=== PATIENT | male | born 1970 | race American Indian/Alaskan Native ===

== ENCOUNTER 2020-11-23 22:51 | Emergency (ER) | payer SELFPAY ==
--- OUTSIDE RECORDS SUMMARY | 2020-11-23 22:55 | XMS REPORT | Clinical Summary ---
:1970 Author Organization [facility] Address [address] [place] [id number] Care Team Providers Name Role Phone Asked, No Pcp Primary Care Provider Unavailable Allergies No Known Active Allergies Medications Not on file Active Problems Not on file Encounters Date Type Specialty Care Team Description 09/16/2020 Emergency Emergency Medicine Jaspreet, Jeanmarie Acute sys tolic CHF DO Figueroa (congestive hea rt failure) (HCC) (Primary Dx) after 11/23/2019 Surgical History Surgery Date Site/Laterality Comments NO PAST SURGERIES Medical History Medical History Date Comments CHF (congestive heart failure) (HCC) Hypertension Adhd Social History Tobacco Use Types Packs/Day Years Used Date Never Smoker Smokeless Tobacco: Never Used Alcohol Use Drinks/Week oz/Week Comments Not Currently Sex Assigned at Date Recorded Not on file Last Filed Vital Signs Vital Sign Reading Time Taken Comments Blood Pressure 114/80 09/16/2020 3:54 PM CDT Pulse 96 09/16/2020 3:54 PM CDT Temperature 36.7 C (98.1 F) 09/16/2020 3:54 PM CDT Respiratory Rate 17 09/16/2020 3:54 PM CDT Oxygen Saturation 99% 09/16/2020 3:54 PM CDT Inhaled Oxygen Concentration - - Weight - - Height - - Body Mass Index - - Plan of Treatment Health Maintenance Due Date Last Done Comments COVID-19 VACCINE (#1) 1986 INFLUENZA VACCINE 06/23/2020 COLONOSCOPY SCREENING 2020 SHINGLES VACCINES (#1) 2020 Procedures Procedure Name Priority Date/Time Associated Comments Diagnosis CT ANGIOGRAM PE CHEST STAT 09/16/2020 2:59 Re sults for this PM CDT procedure are i n the results section. ECG ED PRELIMINARY Routine 09/16/2020 1:56 Resul ts for this INTERPRETATION PM CDT procedure are in the results section. ESTIMATED GFR STAT 09/16/2020 1:30 Results fo r this PM CDT procedure are i n the results section. B NATRIURETIC PEP, STAT 09/16/2020 1:30 Resul ts for this I-STAT PM CDT procedure are i n the results section. TROPONIN, I-STAT STAT 09/16/2020 1:30 Results for this PM CDT procedure are i n the results section. CREATINE KINASE, TOTAL STAT 09/16/2020 1:30 R esults for this (CPK) PM CDT procedure are i n the results section. COMPREHENSIVE METABOLIC STAT 09/16/2020 1:30 Results for this PANEL PM CDT procedure are i n the results section. HC COMPLETE BLD COUNT STAT 09/16/2020 1:30 Re sults for this W/AUTO DIFF PM CDT procedure are i n the results section. ECG 12-LEAD Routine 09/16/2020 1:18 Results for this PM CDT procedure are i n the results section. after 11/23/[address] Angiogram Pe Chest (09/16/2020 2:59 PM CDT) Specimen Narrative Performed At [facility] Examination: CT ANGIOGRAM PE CHEST Clinical history: "PE suspected high pretest prob" Comparison: There are no prior studies for comparison. Technique: CT angiographic images of the chest were obtained during intravenous administration of iodinated contrast. Co mputerized, reformatted images and 3-D MIP images were obtained an d archived (per CT pulmonary embolism protocol). CT scans are performed using radiation dose reduction techniques. Technical factors are evaluated and adjusted to ensu re appropriate moderation of exposure. Automated dose management te chnology is applied to adjust radiation exposure whi le achieving a diagnostic quality image. Findings: There is no CT evidence of pulmonary embolism. The m ain pulmonary artery measures 2.8 cm in luminal diamet er. Exam evaluation: Satisfactory Clot burden: Not applicable Saddle embolus: No Ventricular septal bulging: No RV:LV = normal, 0.7 Within the lungs, extensive infiltration is noted with in the mid to upper portions of both lungs, right greater than left, and likely represents pulmonary edema. A discrete pulmonary nod ules are identified. A small right pleural effu enrique is noted. The central airways are patent. The thoracic aorta and its major branches are without evidence of significant calcific atherosclerosis. There is no ev idence of thoracic aortic aneurysm or dissection. Calcific atheroscler osis of the coronary arteries is noted. Borderline enlarged mediastinal/prevascular lymph node s are noted. There is no mediastinal or axillary lymp hadenopathy. The heart is markedly enlarged. There is no evidence of a pericardial effusion. Within the imaged portions of the upper abdomen, no vi sceral abnormality is identified. Within the imaged bones, no acute abnorm alities are identified. Impression: No CT evidence of pulmonary embolism. Probable pulmonary edema with a small right pleural ef fusion; other etiologies such as atypical/viral pneumo reinaldo should be considered. Marked cardiomegaly. [id number] Procedure Note Hm Interface, Radiology Results Incoming - 09/16/2020 3:10 PM CDT Examination: CT ANGIOGRAM PE CHEST Clinical history: "PE suspected high p retest prob" Comparison: There are no prior studies for comparison. Technique: CT angiographic images of th e chest were obtained during intravenous administration of iodinated contrast. Computerized, reformatted images and 3-D MIP images were obtained and archived (per CT pulmonary embolism protocol). CT scans are performed using radiation d ose reduction techniques. Technical factors are evaluated and adjusted to ensure appropriate moderation of exposure. Automated dose management technology is applied to adjust radiation exposure while achie ving a diagnostic quality image. Findings: There is no CT evidence of pulmonary emb olism. The main pulmonary artery measures 2.8 cm in luminal diameter. Exam evaluation: Satisfactory Clot burden: Not applicable Saddle embolus: No Ventricular septal bulging: No RV:LV = normal, 0.7 Within the lungs, extensive infiltration is noted within the mid to upper portions of both lungs, right greater than left, and likely represents pulmonary edema. A discrete pulmonary nodules are identified. A small right pleural effusion is noted. The central airways are patent. The thoracic aorta and its major branche s are without evidence of significant calcific atherosclerosis. There is no evidence of thoracic aortic aneurysm or dissection. Calcific atherosclerosis of the coronary arteries is noted. Borderline enlarged mediastinal/prevascu lar lymph nodes are noted. There is no mediastinal or axillary lymphadenopathy. The heart is markedly enlarged. There i s no evidence of a pericardial effusion. Within the imaged portions of the upper abdomen, no visceral abnormality is identified. Within the imaged bones, no acute abnorm alities are identified. Impression: No CT evidence of pulmonary embolism. Probable pulmonary edema with a small ri ght pleural effusion; other etiologies such as atypical/viral pneumonia should be considered. Marked cardiomegaly. [id number] Performing Organization Address City/State/[facility] Phon e Number [facility] [address] [place] [address] ECG ED Preliminary Interpretation - Not an Order (09/16/2020 1:56 PM CDT) Narrative Performed At Jeanmarie Vogel DO 0 5:39 PM ECG ED Preliminary Interpretation - Not an Order Performed by: Jeanmarie Vogel DO Authorized by: Jeanmarie Vogel DO ECG reviewed by ED Physician in the abse nce of a technical service specialist: yes Previous ECG: Previous ECG: Unavailable Interpretation: Interpretation: abnormal Rate: ECG rate: 109 ECG rate assessment: tachycardic Rhythm: Rhythm: sinus tachycardia Ectopy: Ectopy: none QRS: QRS axis: Normal QRS intervals: Normal Conduction: Conduction: normal ST segments: ST segments: Normal T waves: T waves: normal Estimated GFR (09/16/2020 1:30 PM CDT) Estimated GFR 64 mL/min/1.73 [facility] Comment: m2 [facility] Units Interpretation TON RGENCY CARE G1 >=90 Normal or high CENTER G2 60-89 Mildly decreased G3a 45-59 Mildly to moderately decreas ed G3b 30-44 Moderately to severely decre ased G4 15-29 Severely decreased G5 <15 Kidney failure The eGFR was calculated using the Chronic Kidney Disea se Epidemiology Collaboration (CKD-EPI) equation. Interpretation is based on recommendations of the National Kidney Foundation-Kidney Disease Outcomes Kd lity Initiative (NKF-KDOQI) published in 2014. Specimen Plasma Performing Organization Address City/State/ZIP Code Phon e Number DEPARTMENT OF PATHOLOGY AND [address] [place] [address] Troponin, I-Stat (09/16/2020 1:30 PM CDT) Troponin, I-Stat 0.06 0.00 - 0.08 [facility] Comment: ng/mL [place] 0.09 - 1.49 ng/ml May indicate increa sed risk of acute EMERGENCY CARE coronary syndrome. WELLS >=1.5 ng/ml Consistent with acute myocardial infarction. The diagnostic value of a single normal or non-diagnos tic result is questionable. Serial samples at 2-6 hour i ntervals are required to rule out acute myocardial injury. Specimen Plasma Performing Organization Address City/[facility] Phon e Number DEPARTMENT OF PATHOLOGY AND [address] [place], [place] [phone] [address] B natriuretic pep, I-Stat (09/16/2020 1:30 PM CDT) Pathologist Sig nature BNP, I-Stat 647 (H) 0 - 100 pg/mL [facility] Specimen Blood Performing Organization Address City/[facility] Phon e Number DEPARTMENT OF PATHOLOGY AND [address] [place], [place] [phone] [address] CBC with platelet and differential (09/16/2020 1:30 PM CDT) Pathologist Sig nature WBC 11.96 (H) 4.50 - 11.00 k/uL [facility] RBC 4.43 4.40 - 6.00 m/uL [facility] HGB 12.4 (L) 14.0 - 18.0 g/dL [facility] HCT 38.5 (L) 41.0 - 51.0 % [facility] MCV 86.9 82.0 - 100.0 fL [facility] MCH 28.0 27.0 - 34.0 pg [facility] MCHC 32.2 31.0 - 37.0 g/dL [facility] RDW - SD 47.1 37.0 - 55.0 fL [facility] MPV 8.2 (L) 8.8 - 13.2 fL [facility] Platelet count 611 (H) 150 - 400 k/uL [facility] Neutrophils 72.7 (H) 39.0 - 69.0 % [facility] Lymphocytes 13.6 (L) 25.0 - 45.0 % [facility] Monocytes 7.2 0.0 - 10.0 % [facility] Eosinophils 5.7 (H) 0.0 - 5.0 % [facility] Basophils 0.8 0.0 - 1.0 % [facility] Specimen Plasma Performing Organization Address City/[facility] Phon e Number DEPARTMENT OF PATHOLOGY AND [address] [place] [address] Creatine kinase, total (CPK) (09/16/2020 1:30 PM CDT) Pathologist Sig madalyn Creatine kinase 175 39 - 380 U/L [facility] Specimen Plasma Performing Organization Address City/[facility] Phon e Number DEPARTMENT OF PATHOLOGY AND [address] [place] [phone] Comprehensive metabolic panel (09/16/2020 1:30 PM CDT) Sodium 139 128 - 145 mEq/L [facility] Potassium 4.5 3.6 - 5.1 mEq/L [facility] CO2 35 (H) 18 - 33 mEq/L [facility] Chloride 102 98 - 108 mEq/L [facility] Glucose 103 73 - 118 mg/dL [facility] Calcium 9.2 8.0 - 10.3 [facility] mg/dL [facility] BUN 16 7 - 22 mg/dL [facility] Creatinine 1.3 (H) 0.7 - 1.2 mg/dL [facility] Alkaline phosphatase 47 (L) 53 - 128 U/L [facility] ALT 24 10 - 47 U/L [facility] AST 19 11 - 38 U/L [facility] Total bilirubin 0.6 0.2 - 1.6 mg/dL [facility] Albumin 3.2 (L) 3.3 - 5.5 g/dL [facility] Protein 6.8 6.4 - 8.1 g/dL [facility] Anion gap 2@ANIO (L) 7 - 15 mEq/L [facility] A/G ratio 0.9 0.7 - 3.8 [facility] Specimen Plasma Performing Organization Address City/[facility] Phon e Number DEPARTMENT OF PATHOLOGY AND [address] [place] [phone] [address] [facility] ECG 12 lead (09/16/2020 1:18 PM CDT) Pathologist Sig nature Ventricular rate 108 [facility] Atrial rate 108 [facility] CO interval 144 [facility] QRSD interval 90 [facility] QT interval 340 [facility] QTC interval 455 [facility] P axis 1 72 [facility] QRS axis 1 36 [facility] T wave axis 53 [facility] EKG impression Sinus [facility] tachycardia-Possible Left atrial enlargement-Borderline ECG-No previous ECGs available-Electronicall y Signed By Jose RAE, Major ([id number]) on 09/18/2020 7:20:40 PM Specimen Narrative Performed At This result has an attachment that is no t available. 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
[2020-11-23] MEDS ORDERED: DIPHENHYDRAMINE 50 MG/ML VIAL ONE (23:10)
[2020-11-23] MEDS ORDERED: METHYLPREDNISOLONE 125 MG INJ ONE (23:10)
[2020-11-23] MEDS ORDERED: FAMOTIDINE 20 MG/2 ML VIAL IV ONE (23:11)
[2020-11-23] MEDS ORDERED: NA CHLORIDE 0.9% 500 ML ONE (23:11)
[2020-11-23 23:20] LABS: Basophils % 0.4 % (0-1.3); Hematocrit 41.3 % (39.6-49.0); Lymphocytes % 20.3 % (15.3-44.8)
[2020-11-23 23:26] LABS: Potassium 4.2 mmol/L (3.5-5.1)
--- NOTE | 2020-11-24 01:50 | EDPHYS ---
Physician Documentation [facility] Name: Jaspreet Arrington Age: 50 yrs Sex: Male : 1970 Arrival Date: 11/23/2020 Time: 22:53 Bed 3 Private MD: ED Physician Junito Colunga HPI: 11/24 00:07 This 50 yrs old Male presents to ER via Wheelchair with complaints of kb Allergic Reaction. 00:07 The patient presents with localized swelling. Onset: The symptoms/episode kb began/occurred today, at 19:00. Associated signs and symptoms: Pertinent positives: swelling, Pertinent negatives: abdominal pain, Altered mental status chest pain, dysphagia, fever, headache, hives, Light headed nausea, rash, shortness of breath, Syncope vomiting. Possible causes: The patient has no known obvious cause for the symptoms. At home the patient or guardian has treated the symptoms with Benadryl. Severity of symptoms: At their worst the symptoms were moderate in the emergency department the symptoms are unchanged. The patient has experienced a previous episode. The patient has not recently seen a physician. Pt reports he started feeling throat and neck swelling at 1900. States it got progressively worse until he decided to come to the ER. Pt able to talk, but states it is difficult. Resp even and unlabored. Pt had angioedema once while taking lisinopril years ago, but no longer takes that medication. Historical: - Allergies: 11/23 23:02 No Known Allergies; lp1 - Home Meds: 23:02 tamsulosin 0.4 mg oral cp24 1 cap once daily [Active]; furosemide 40 mg Oral tab 1 tab lp1 once daily [Active]; Entresto 24-26 mg oral tab twice a day [Active]; carvedilol 3.125 mg oral tab 1 tab 2 times per day [Active]; - PMHx: 23:02 CHF; lp1 - PSHx: 23:02 None; lp1 - Immunization history:: Adult Immunizations up to date. - Social history:: Smoking status: Patient denies any tobacco usage or history of. ROS: 11/24 00:07 Constitutional: Negative for fever, chills, and weight loss, Cardiovascular: Negative kb for chest pain, palpitations, and edema, Respiratory: Negative for shortness of breath, cough, wheezing, and pleuritic chest pain, Abdomen/GI: Negative for abdominal pain, nausea, vomiting, diarrhea, and constipation, MS/Extremity: Negative for injury and deformity, Skin: Negative for injury, rash, and discoloration, Neuro: Negative for headache, weakness, numbness, tingling, and seizure. ENT: Positive for swelling to throat. Neck: Positive for swelling. Exam: 00:06 Constitutional: This is a well developed, well nourished patient who is awake, alert, kb and in no acute distress. Head/Face: Normocephalic, atraumatic. Chest/axilla: Normal chest wall appearance and motion. Nontender with no deformity. No lesions are appreciated. Cardiovascular: Regular rate and rhythm with a normal S1 and S2. No gallops, murmurs, or rubs. Normal PMI, no JVD. No pulse deficits. Respiratory: Lungs have equal breath sounds bilaterally, clear to auscultation and percussion. No rales, rhonchi or wheezes noted. No increased work of breathing, no retractions or nasal flaring. Abdomen/GI: Soft, non-tender, with normal bowel sounds. No distension or tympany. No guarding or rebound. No evidence of tenderness throughout. Skin: Warm, dry with normal turgor. Normal color with no rashes, no lesions, and no evidence of cellulitis. MS/ Extremity: Pulses equal, no cyanosis. Neurovascular intact. Full, normal range of motion. Neuro: Awake and alert, GCS 15, oriented to person, place, time, and situation. Cranial nerves II-XII grossly intact. Motor strength 5/5 in all extremities. Sensory grossly intact. Cerebellar exam normal. Normal gait. 00:06 ENT: Posterior pharynx: swelling, that is moderate. 00:06 Neck: External neck: swelling, that is moderate, of the right sternocleidomastoid and left sternocleidomastoid. Vital Signs: 11/23 22:57 BP 119 / 82; Pulse 117; Resp 18; Temp 98.1(TE); Pulse Ox 97% on R/A; Weight 72.57 kg lp1 (R); Height 5 ft. 7 in. (170.18 cm); 23:18 BP 120 / 89; Pulse 101; Resp 18; Pulse Ox 100% on R/A; mg2 11/24 00:27 BP 125 / 79; Pulse 103; Resp 19; Pulse Ox 99% ; rr5 01:15 BP 121 / 82; Pulse 96; Resp 17; Pulse Ox 100% ; rr5 01:48 BP 127 / 87; Pulse 99; Resp 18; Pulse Ox 100% on R/A; mg2 11/23 22:57 Body Mass Index 25.06 (72.57 kg, 170.18 cm) lp1 MDM: 11/23 22:55 Patient medically screened. kb 11/24 00:06 Data reviewed: vital signs, nurses notes. Data interpreted: Pulse oximetry: on room air kb is 100 %. Interpretation: normal. 00:39 Transition of care: After a detail discussion of the patient's case, care is kb transferred to Junito Colunga MD. ED course: Pt reports he feels like the swelling is better after medications. Neck swelling has gone down. . ED course: Discussed with Dr Colunga. 01:45 ED course: Patient feeling better. Discussed lab ang CT Scan result with patient. pkl Advised to follow up with PCP in 2 to 3 days. to return if necessary. Patient understood instruction. 11/23 22:56 Order name: CBC with Diff; Complete Time: 23:48 kb 11/23 22:56 Order name: Basic Metabolic Panel; Complete Time: 23:48 kb 11/23 23:54 Order name: CT Soft Tissue Neck W/contr kb 11/23 22:56 Order name: IV Start; Complete Time: 22:59 kb Administered Medications: 11/23 22:59 Drug: NS 0.9% 500 ml Route: IV; Rate: bolus; Site: left antecubital; mg2 11/24 00:54 Follow up: Response: No adverse reaction; IV Status: Completed infusion; IV Intake: mg2 500ml 11/23 23:00 Drug: SOLU-Medrol 125 mg Route: IVP; Site: left antecubital; mg2 11/24 00:55 Follow up: Response: No adverse reaction; Marked relief of symptoms mg2 11/23 23:00 Drug: Pepcid 20 mg Route: IVP; Site: left antecubital; mg2 11/24 00:55 Follow up: Response: No adverse reaction; Marked relief of symptoms mg2 11/23 23:00 Drug: Benadryl 25 mg Route: IVP; Site: left antecubital; mg2 11/24 00:55 Follow up: Response: No adverse reaction; Marked relief of symptoms mg2 Disposition: 04:06 Co-signature as Attending Physician, Junito Colunga MD. pkl Disposition: 11/24/20 01:49 Discharged to Home. Impression: Retropharyngeall edema. - Condition is Stable. - Prescriptions for Prednisone 20 mg Oral Tablet - take 2 tablet by ORAL route once daily for 5 days; 10 tablet. - Medication Reconciliation Form, Thank You Letter, Antibiotic Education, Prescription Opioid Use form. - Follow up: Private Physician; When: 2 - 3 days; Reason: Re-evaluation by your physician. - Problem is new. - Symptoms have improved. Signatures: Dispatcher [employer] EDMS Rachel Muñiz, GAUGE CHECKER-C GAUGE CHECKER-Junito Andino MD MD pkl Jaycee Velazquez, RN RN lp1 Goran Sims, RN RN mg2 Rich Crowley RN RN rr5 Corrections: (The following items were deleted from the chart) 01:51 01:49 11/24/2020 01:49 Discharged to Home. Impression: Retropharyngeall edema. rr5 Condition is Stable. Forms are Medication Reconciliation Form, Thank You Letter, Antibiotic Education, Prescription Opioid Use. Follow up: Private Physician; When: 2 - 3 days; Reason: Re-evaluation by your physician. Problem is new. Symptoms have improved. pkl
--- NOTE | 2020-11-24 01:50 | ER ---
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 Coronavirus screen: Client denies travel out of the [place] in the last 14 days. At this time, the client does not indicate any symptoms associated with coronavirus-19. Ebola Screen: No symptoms or risks identified at this time. Initial Sepsis Screen: Does the patient meet any 2 criteria? No. Patient's initial sepsis screen is negative. Does the patient have a suspected source of infection? No. Patient's initial sepsis screen is negative. Risk Assessment: Do you want to hurt yourself or someone else? Patient reports no desire to harm self or others. Onset of symptoms was November 23, 2020 at 19:00. 22:57 Method Of Arrival: Wheelchair lp1 22:57 Acuity: TIBURCIO 2 lp1 Historical: - Allergies: 23:02 No Known Allergies; lp1 - Home Meds: 23:02 tamsulosin 0.4 mg oral cp24 1 cap once daily [Active]; furosemide 40 mg Oral tab 1 tab lp1 once daily [Active]; Entresto 24-26 mg oral tab twice a day [Active]; carvedilol 3.125 mg oral tab 1 tab 2 times per day [Active]; - PMHx: 23:02 CHF; lp1 - PSHx: 23:02 None; lp1 - Immunization history:: Adult Immunizations up to date. - Social history:: Smoking status: Patient denies any tobacco usage or history of. Screenin:01 Abuse screen: Denies threats or abuse. Denies injuries from another. Nutritional mg2 screening: No deficits noted. Tuberculosis screening: No symptoms or risk factors identified. Fall Risk IV access (20 points). Assessment: 23:01 General: Appears in no apparent distress. comfortable, Behavior is anxious. Neuro: mg2 Level of Consciousness is awake, alert, obeys commands, Oriented to person, place, time, situation. Cardiovascular: Capillary refill < 3 seconds Patient's skin is warm and dry. Respiratory: Airway is patent Respiratory effort is even, unlabored, Respiratory pattern is regular, symmetrical. GI: No signs and/or symptoms were reported involving the gastrointestinal system. : No signs and/or symptoms were reported regarding the genitourinary system. EENT: Reports throat feels tight/closing up. Derm: Skin is intact, is healthy with good turgor, Skin is pink, warm \T\ dry. normal. Musculoskeletal: Circulation, motion, and sensation intact. Capillary refill < 3 seconds. 23:01 Pain: Complains of pain in throat. rr5 11/24 00:25 Reassessment: Patient appears in no apparent distress at this time. Patient is alert, rr5 oriented x 3, equal unlabored respirations, skin warm/dry/pink. back from CT scan Patient states feeling better. Patient states symptoms have improved. 01:20 Reassessment: Patient appears in no apparent distress at this time. Patient is alert, rr5 oriented x 3, equal unlabored respirations, skin warm/dry/pink. noc complaints made awaiting for results. 01:49 Reassessment: Patient appears in no apparent distress at this time. Patient is alert, rr5 oriented x 3, equal unlabored respirations, skin warm/dry/pink. discharge instruction given and explained without complaints made Patient states feeling better. Patient states symptoms have improved. Vital Signs: 11/23 22:57 BP 119 / 82; Pulse 117; Resp 18; Temp 98.1(TE); Pulse Ox 97% on R/A; Weight 72.57 kg lp1 (R); Height 5 ft. 7 in. (170.18 cm); 23:18 BP 120 / 89; Pulse 101; Resp 18; Pulse Ox 100% on R/A; mg2 11/24 00:27 BP 125 / 79; Pulse 103; Resp 19; Pulse Ox 99% ; rr5 01:15 BP 121 / 82; Pulse 96; Resp 17; Pulse Ox 100% ; rr5 01:48 BP 127 / 87; Pulse 99; Resp 18; Pulse Ox 100% on R/A; mg2 11/23 22:57 Body Mass Index 25.06 (72.57 kg, 170.18 cm) lp1 ED Course: 11/23 22:53 Patient arrived in ED. es 22:55 Rachel Muñiz FNP-C is [facility]. kb 22:55 Junito Andrew MD is Attending Physician. kb 22:59 Goran Sims, RUBÉN is Primary Nurse. mg2 23:00 Patient has correct armband on for positive identification. aircraft ordnance systems mechanic on. Pulse mg2 ox on. NIBP on. Door closed. Warm blanket given. 23:00 Arm band placed on right wrist. rr5 23:01 Triage completed. lp1 23:01 No provider procedures requiring assistance completed. Inserted saline lock: 18 gauge mg2 in left antecubital area, using aseptic technique. Blood collected. by RUBÉN Villanueva. 11/24 00:25 CT Soft Tissue Neck W/contr In Process Unspecified. EDMS 01:50 IV discontinued, intact, bleeding controlled, No redness/swelling at site. Pressure rr5 dressing applied. Administered Medications: 11/23 22:59 Drug: NS 0.9% 500 ml Route: IV; Rate: bolus; Site: left antecubital; mg2 11/24 00:54 Follow up: Response: No adverse reaction; IV Status: Completed infusion; IV Intake: mg2 500ml 11/23 23:00 Drug: SOLU-Medrol 125 mg Route: IVP; Site: left antecubital; mg2 11/24 00:55 Follow up: Response: No adverse reaction; Marked relief of symptoms mg2 11/23 23:00 Drug: Pepcid 20 mg Route: IVP; Site: left antecubital; mg2 11/24 00:55 Follow up: Response: No adverse reaction; Marked relief of symptoms mg2 11/23 23:00 Drug: Benadryl 25 mg Route: IVP; Site: left antecubital; mg2 11/24 00:55 Follow up: Response: No adverse reaction; Marked relief of symptoms mg2 Intake: 00:54 IV: 500ml; Total: 500ml. mg2 Outcome: 01:49 Discharge ordered by . pkl 01:50 Discharged to home ambulatory. rr5 01:50 Condition: stable 01:50 Discharge instructions given to patient, Instructed on discharge instructions, follow up and referral plans. medication usage, Demonstrated understanding of instructions, follow-up care, medications, Prescriptions given X 1. 01:51 Patient left the ED. rr5 Signatures: Dispatcher [employer] EDMS Rachel Muñiz, MYSQL DATABASE ADMINISTRATOR-C MYSQL DATABASE ADMINISTRATOR-Junito Andino MD MD pkl Salyer, Edna es Pena, Laura, RN RN lp1 Goran Sims, RN RN mg2 Rich Crowley, RN RN rr5
[2020-11-24 01:56] VITALS: TEMP 98.1
[2020-11-24 02:00] VITALS: O2SAT 100
[2020-11-24 02:01] VITALS: BP 127/87
--- NOTE | 2020-11-25 15:15 | RAD REPORT ---
EXAM DESCRIPTION: CT - Soft Tissue Neck W/Contr - 11/24/2020 6:43 am CLINICAL HISTORY: The patient is 50 years old and is Male; neck swelling TECHNIQUE: Axial computed tomography images of the neck with intravenous contrast. Sagittal and co clinton reformatted images were created and reviewed. This CT exam was performed using one or more of the following dose reduction techniques: automated exposure control, adjustment of the mA and/or k V according to patient size, and/or use of iterative reconstruction technique. COMPARISON: No relevant prior studies available. FINDINGS: LIMITATIONS: Examination is significantly limited secondary to motion artifact. OROPHARYNX: No obvious acute findings; however, significant motion artifact limits evaluation in th is region. HYPOPHARYNX: No obvious acute findings; however, significant motion artifact limits evaluation in this region. LARYNX: Unremarkable. Normal epiglottis. TRACHEA: Unremarkable. RETROPHARYNGEAL SPACE: Fluid and edema along the retropharyngeal region is present. SUBMANDIBULAR/PAROTID GLANDS: Unremarkable. Glands are normal in size. THYROID: Unremarkable. No enlarged or calcified nodules. BONES/JOINTS: No acute fracture. Minimal multilevel degenerative change of the spine is present. SOFT TISSUES: The soft tissues are normal. VASCULATURE: Unremarkable. Normal in course and caliber. LYMPH NODES: Unremarkable. No enlarged lymph nodes. LUNG APICES: The lung apices are clear. IMPRESSION: Retropharyngeal edema. Due to motion artifact, cannot exclude pathology at the level of the oral cavity or oropharynx, including the peritonsillar region. Electronically signed by: Xochitl Walker MD 11/24/2020 12:43 AM PRINTED CIRCUIT BOARDS LAMINATOR Due to temporary technical issues with the PACS/Fluency reporting system, reports are being signed by the in house radiologists without review as a courtesy to insure prompt reporting. The interpreting radiologist is fully responsible for the content of the report.
== END 2020-11-24 01:51 | disposition home or self-care (01) ==
LOC: ER 22:51
DX: J39.2 Other diseases of pharynx (principal); I50.9 Heart failure, unspecified
CPT/HCPCS: 36415; 70491; 80048; 85025; 96361; 96374; 96375; 99284; J1200; J2930; J7040; Q9967